=== PATIENT | male | born 1960 | race African-American/Black ===

== ENCOUNTER 2024-10-18 18:15 | Emergency (ER) | payer OTHER ==
[~2024-10-18] VITALS: Ht 170.2 cm; Wt 70.0 kg
[~2024-10-18 18:15] MED LIST: UNK MEDS
[2024-10-18 18:17] VITALS: BP 116/84; PULSE 54; RESP 16; TEMP 97.6; O2SAT 95
[2024-10-18 23:54] LABS: CHLORIDE 108 mEq/L (98-107); POTASSIUM 3.1 mEq/L (3.5-5.1)
[2024-10-18 23:55] LABS: BASOPHILS % 0.3 % (0.0-2.0); CALCIUM 9.1 mg/dL (8.7-10.4); CARBON DIOXIDE 22 mEq/L (21-32); EOSINOPHILS % 0.2 % (0.0-5.0); HEMATOCRIT. 53.4 % (42.0-52.0); HEMOGLOBIN. 17.4 g/dL (14.0-18.0); MEAN CORPUSCULAR HEMOGLOBIN 27.7 pg (28.0-32.0); MEAN CORPUSCULAR HGB CONC 32.6 g/dL (31.0-37.0); MEAN PLATELET VOLUME 7.8 fl (7.4-10.4); MONOCYTES % 8.1 % (2.0-8.0); NEUTROPHILS % 60.4 % (40.0-76.0); PLATELET 341 x1000/uL (130-400); RED BLOOD CELL COUNT 6.29 mill/uL (4.7-6.1); RED CELL DISTRIBUTION WIDTH 17.9 % (11.6-14.6); SODIUM 145 mEq/L (136-145); WHITE BLOOD COUNT 10.8 x1000/uL (4.5-11.0)
[2024-10-18 23:56] LABS: CREATININE 0.7 mg/dL (0.6-1.3); ETHANOL BLOOD 236 mg/dL (<10); GLUCOSE 59 mg/dL (70-105); TROPONIN I HIGH SENSITIVITY 8 ng/L (3.0-53); UREA NITROGEN BLOOD 6 mg/dL (9-23)
[2024-10-18 23:57] LABS: ALANINE AMINOTRANSFERASE 17 IU/L (10-49); ALBUMIN 4.6 g/dL (3.2-4.8); ASPARTATE AMINOTRANSFERASE 41 IU/L (<34); BILIRUBIN DIRECT 0.1 mg/dL (<=3.0); BILIRUBIN TOTAL 0.4 mg/dL (0.1-1.0); PROTEIN TOTAL 8.2 g/dL (6.0-8.3)
[2024-10-19] LABS: INR 0.9; PROTHROMBIN TIME 10.6 sec (9.6-11.0)
[2024-10-19] MEDS ORDERED: POTASSIUM CHLORIDE 20MEQ TABLET SR PO ONE
[2024-10-19] MEDS ORDERED: P50 MT (00:34)
[2024-10-19] MEDS ORDERED: AZIT250T12 MT (00:34)
[2024-10-19] MEDS ORDERED: AMOX1TAB16 MT (00:34)
[2024-10-19] MEDS ORDERED: ALBU18HF2 IH (00:34)
[2024-10-19] MEDS: POTASSIUM CHLORIDE 20MEQ TABLET SR PO NR (02:00)
== END 2024-10-19 00:40 | disposition home or self-care (01) ==
LOC: ER 18:15
DX: F10.129 Alcohol abuse with intoxication, unspecified (principal); J44.9 Chronic obstructive pulmonary disease, unspecified; Z59.00 Homelessness unspecified; Y90.7 Blood alcohol level of 200-239 mg/100 ml
CPT/HCPCS: 71045; 80048; 80076; 80320; 82962; 83880; 84484; 85025; 93005; 99285; G0480